=== PATIENT | female | born 1995 | race Caucasian/White ===

== ENCOUNTER 2019-10-10 12:32 | Outpatient (CLI) | payer BC, SELFPAY ==
[2019-10-12 08:36] LABS: COVID-19 RT-PCR Result Not Detected
== END 2019-10-10 12:52 ==
PROVIDERS: PCP Pediatrics; Visit Provider Family Medicine
DX: Z20.828 Contact with and (suspected) exposure to other viral communicable diseases (principal); Z11.59 Encounter for screening for other viral diseases
CPT/HCPCS: 87449; U0003

== ENCOUNTER 2020-06-05 16:18 | Outpatient (REF) | payer BC, SELFPAY ==
[2020-06-09 13:57] LABS: Patient Race White; SARS-CoV-2 RNA Undetected (Undetected); SARS-CoV-2 Specimen Source Nasal
== END 2020-06-05 16:38 ==
LOC: NCHCN 16:18
PROVIDERS: PCP Pediatrics; Visit Provider Nurse Practitioner Family
DX: Z20.828 Contact with and (suspected) exposure to other viral communicable diseases (principal)
CPT/HCPCS: U0003

== ENCOUNTER 2020-07-23 02:55 | Outpatient (CLI) | payer BC, SELFPAY ==
[2020-07-24 15:36] LABS: COVID-19 RT-PCR UVMMC Result Negative (Negative)
== END 2020-07-23 03:15 ==
PROVIDERS: PCP Pediatrics; Visit Provider Ophthalmology
DX: Z11.59 Encounter for screening for other viral diseases (principal); Z01.818 Encounter for other preprocedural examination
CPT/HCPCS: U0003

== ENCOUNTER 2022-05-28 15:35 | Outpatient (CLI) | payer BC, SELFPAY ==
[2022-05-28 16:09] LABS: Bilirubin Negative (Negative); Blood Negative (Negative); Clarity Clear (Clear); Glucose Negative (Negative); Ketones Negative (Negative); Leukocyte Esterase Negative (Negative); Nitrite Negative (Negative); Specific Gravity >= 1.030 (1.005-1.025); Urobilinogen 0.2 EU/dL (Up TO 0.2)
[2022-05-28 16:10] LABS: Abs Immature Grans 0.03 10^3/uL (0.0-0.06); Absolute Eosinophil Count 0.12 10^3/uL (0.0-0.7); Absolute Lymphocyte Count 1.53 10^3/uL (1.2-3.4); Absolute Monocyte Count 0.88 10^3/uL (0.1-0.8); Absolute Neutrophil Count 5.57 10^3/uL (1.2-6.7); Basophils % 1.2; Eosinophils % 1.5; HCT 40.7 % (36.0-46.0); HGB 13.4 g/dL (11.2-15.7); Immature Grans % 0.4; Lymphocytes % 18.6; MCH 29.3 pg (27.0-33.0); MCHC 32.9 % (32.0-36.0); MCV 89 fL (80-95); MPV 9.9 fL (8.0-11.0); Monocytes % 10.7; Neutrophils % 67.6; Platelet Count 320 10^3/uL (130-400); RBC 4.57 10^6/uL (3.93-5.22); RDW 12.4 % (11.7-14.6); RDW-SD 40.7 fL; WBC 8.23 10^3/uL (4.4-10.8)
[2022-05-28 17:16] LABS: ALT 131 U/L (14-59); AST 86 U/L (15-37); Albumin 3.8 g/dL (3.4-5.0); Alkaline Phosphatase 196 U/L (46-116); Anion Gap 9.5 mmol/L (3-11); BUN 13 mg/dL (7-18); Bilirubin, Total 0.3 mg/dL (0.2-1.0); C-Reactive Protein 1.61 mg/dL (0.0-0.3); CO2 26.5 mmol/L (21.0-32.0); CREATININE 0.9 mg/dL (0.55-1.02); Calcium 9.1 mg/dL (8.5-10.1); Chloride 104 mmol/L (98-107); Estimated GFR 89.86 (mL/min/1.73m2); Glucose 90 mg/dL (74-106); Potassium 3.6 mmol/L (3.5-5.1); Sodium 140 mmol/L (136-145); Total Protein 8.2 g/dL (6.4-8.2)
[2022-05-31 13:56] LABS: Creatine Kinase 61 U/L (26-192)
== END 2022-05-28 15:36 | disposition home or self-care (01) ==
LOC: LBO 15:37
PROVIDERS: Visit Provider Internal Medicine Rheumatology
DX: M32.8 Other forms of systemic lupus erythematosus (principal)
CPT/HCPCS: 36415; 80053; 82550; 81003; 85025; 86140